=== PATIENT | male | born 1960 | race Caucasian/White ===

== ENCOUNTER 2020-04-11 10:33 | Emergency (ER) | payer MEDICARE, SELFPAY ==
[2020-04-11] VITALS (10 sets, daily range): BP systolic 93–124; BP diastolic 45–86; PULSE 75–138; RESP 16–135; TEMP 36.7; O2SAT 90–98; BMI 23.0
--- NOTE | 2020-04-11 10:36 | HMH.EDGENADL ---
ED Disposition Clinical Impression: Atrial fibrillation with RVR, Hyperglycemia GI bleed Qualifiers: GI bleed type/associated pathology: melena Qualified Code(s): K92.1 - Melena Hemorrhoids Qualifiers: Hemorrhoid type: other Qualified Code(s): K64.8 - Other hemorrhoids Leukocytosis Qualifiers: Leukocytosis type: other Qualified Code(s): D72.828 - Other elevated white blood cell count Disposition: Xfer Short-Term Hosp Condition on Discharge: Good Referrals: Provider,Referral, [Referring] - Time of Disposition: 14:26 - Critical Care Critical Care Time: No Attestation: On , the high probability of a clinically significant, sudden or life threatening deterioration of the following system(s) required my full and direct attention, intervention and personal management. The time I documented below is in addition to time spent performing reported procedures but includes the following listed in this critical care notation. Medical Decision Making - Medical Records Medical records reviewed: Yes: I reviewed the patient's medical records. MR Comment: 59-year-old male with a history of diabetes on 3 days a week dialysis presents the emergency department due to hemorrhoid pain, however further evaluation reveals that he has not been feeling well this week, family reports that he is unsteady on his feet, and he has missed his dialysis appointments all week as well. No focal neurological deficits. On arrival here he is in A. fib with RVR, he denies any history of this and family denies any history. Given this, he needs lab work-up and EKG. Will reassess. Brother arrives to the ER and states he has been passing blood clots in his stool. On reassessment, patient remained stable. We have treated his A. fib with RVR with metoprolol 5 mg twice. HR now 110-120. We have also treated his hyperglycemia with insulin, twice and rechecked glucose. He got 500 cc fluid. Given that the patient needs a GI work-up, has new onset A. fib with RVR, and is missed his dialysis appointments, he needs to be transferred for dialysis and further work-up. [facility]. Stable, transfer. - Parmjit Inquiry Pt receiving controlled substance: No Vital Signs: 04/11/20 10:34 04/11/20 12:04 04/11/20 12:40 Temperature 98.1 F Temperature Source Oral Pulse Rate [Right] 75 119 H 130 H Respiratory Rate 17 16 Blood Pressure [Right Arm] 124/56 L 108/58 L 121/76 Blood Pressure Mean [Right Arm] 78 74 91 Blood Pressure Source [Right Arm] Automatic Cuff Automatic Cuff Blood Pressure Position [Right Arm] Sitting Sitting 02 Sat by Pulse Oximetry 90 L 98 98 Oxygen Delivery Method Room Air Room Air 04/11/20 13:30 Temperature Temperature Source Pulse Rate [Right] 134 H Respiratory Rate 20 Blood Pressure [Right Arm] 101/58 L Blood Pressure Mean [Right Arm] 72 Blood Pressure Source [Right Arm] Automatic Cuff Blood Pressure Position [Right Arm] 02 Sat by Pulse Oximetry 96 Oxygen Delivery Method Room Air - Lab Data Lab Results 04/11/20 10:50: WBC 20.1 H*, RBC 3.27 L, Hgb 10.6 L, Hct 30.6 L, MCV 93.7, MCH 32.4 H, MCHC 34.6, RDW 14.0, Plt Count 224, MPV 11.5 H, Neut % (Auto) 93.6 H, Lymph % (Auto) 2.6 L, Mcdowell % (Auto) 3.6, Eos % (Auto) 0.1, Baso % (Auto) 0.1, Neut # (Auto) 18.8 H, Lymph # (Auto) 0.5 L, Mcdowell # (Auto) 0.7, Eos # (Auto) 0.0, Baso # (Auto) 0.0, Total Counted 100, Neutrophils % (Manual) 93 H, Lymphocytes % (Manual) 2 L, Monocytes % (Manual) 4, Eosinophils % (Manual) 1, Platelet Estimate Normal, RBC Morphology Normal 04/11/20 10:50: Sodium 126 L, Potassium 4.2, Chloride 87 L, Carbon Dioxide 17 L, Anion Gap 26.2 H, BUN 78 H, Creatinine 7.00 H, Estimated Creat Clear 12, Estimated GFR 8 L*, Est GFR ( Amer) 10 L*, Glucose 530 H*, Calcium 8.3 L, Total Bilirubin 0.7, AST 157 H, ALT 73, Alkaline Phosphatase 101, Troponin I 0.04 H, Total Protein 6.3, Albumin 3.2 L, Globulin 3.1, Albumin/Globulin Ratio 1.0 L 08
--- NOTE | 2020-04-11 10:39 | XR_ITS ---
PROCEDURE: XR CHEST PORTABLE CLINICAL HISTORY: weakness COMPARISON: CR CXR CHEST(2 VIEWS-NOT PORTABLE) from 10/01/2014 CR CXR CHEST(2 VIEWS-NOT PORTABLE) from 02/22/2016 CR CXR CHEST(2 VIEWS-NOT PORTABLE) from 01/03/2017 FINDINGS: The cardiomediastinal silhouette and pulmonary vascularity are within normal limits. The lungs are clear without infiltrates, suspicious nodules, or pleural effusions. No acute bony abnormalities. IMPRESSION: No acute findings. Dictated b Radames Moran MD 04/11/2020 12:46 Radames Moran MD in [place] 04/11/2020 12:46
--- NOTE | 2020-04-11 10:39 | CT_ITS ---
PROCEDURE: CT HEAD/BRAIN WO CON CLINICAL INDICATION: fall Posttraumatic pain, Head injury with headache/pain, contusion, abrasion or hematoma COMPARISON: CT HWWO CT HEAD-W/WO CONTRAST from 10/01/2014 TECHNIQUE: Axial images obtained. All CT scans at the facility use one or more dose reduction, viz: automated exposure control, ma/kV adjustment per patient size (including targeted exams where dose is matched to indication, i.e. head), or iterative reconstruction technique. FINDINGS: No midline shift, mass effect, intracranial hemorrhage, hydrocephalus, or extra-axial fluid collection is evident. There is generalized atrophy with hypoattenuation of the periventricular white matter consistent with microangiopathic changes. The calvarium has an unremarkable appearance. No mastoid effusion. There is mild mucosal thickening of the ethmoid sinuses. IMPRESSION: No acute intracranial finding. There is generalized atrophy with hypoattenuation of the periventricular white matter consistent with microangiopathic changes. Dictated b Radames Moran MD 04/11/2020 12:25 Radames Moran MD in [facility] 04/11/2020 12:25
--- NOTE | 2020-04-11 10:44 | ECG_ITS ---
APPROVED REPORT Exam: Resting ECG HR:142 bpm ECG Measurements Heart Rate 142 AXES QRSd 114 QRS -24 QT 332 T 131 QTc 510 <Conclusion> Atrial fibrillation with rapid ventricular response Incomplete right bundle branch block Minimal voltage criteria for LVH, may be normal variant ST & T wave abnormality, consider lateral ischemia or digitalis effect Abnormal ECG Electronically signed by : Enrique Willis, 04/12/2020 09:17:54
[2020-04-11 10:58] LABS: Basophils % 0.1 % (0.1-2.0); Eosinophils % 0.1 % (0.1-12.0); Hematocrit 30.6 % (42.0-52.0); Hemoglobin 10.6 g/dL (14.1-18.0); Lymphocytes # 0.5 K/mm3 (0.7-4.5); Lymphocytes % 2.6 % (10-50); Mean Corpuscular HGB Conc 34.6 g/dL (31.8-35.4); Mean Corpuscular Hemoglobin 32.4 pg (27.0-31.2); Mean Corpuscular Volume 93.7 fl (80-94); Mean Platelet Volume 11.5 fl (7.4-10.4); Monocytes # 0.7 K/mm3 (0.1-1.0); Monocytes % 3.6 % (1.7-9.3); Neutrophils # 18.8 K/mm3 (1.8-7.8); Neutrophils % 93.6 % (37.0-80.0); Platelet Count 224 K/mm3 (142-424); Red Blood Count 3.27 M/mm3 (4.60-6.20); White Blood Count 20.1 K/mm3 (4.8-10.8)
[2020-04-11 11:01] LABS: Chloride 87 mmol/L (98-107); Potassium 4.2 mmoL/L (3.5-5.1); Sodium 126 mmol/L (136-145)
[2020-04-11 11:03] LABS: Creatinine Clearance Estimated 12 mL/min (50-200); Estimated Glomerular Filt Rate 8 ml/min (>60); GFR (African American) 10 ML/MIN (>60)
[2020-04-11 11:04] LABS: Alanine Aminotransferase 73 U/L (12-78); Albumin Level 3.2 g/dl (3.5-5.0); Alkaline Phosphatase 101 U/L (38-126); Anion Gap 26.2 mEq/L (5-15); Aspartate Amino Transferase 157 U/L (17-59); Bilirubin,Total 0.7 mg/dl (0.2-1.3); Carbon Dioxide 17 mmol/L (22.0-30.0); Globulin 3.1 g/dL (1.3-3.2); Total Protein,Serum 6.3 g/dl (6.3-8.2)
[2020-04-11 11:05] LABS: Calcium 8.3 mg/dl (8.4-10.2); MANUAL DIFFERENTIAL MANUAL DIFFERENTIAL (MANUAL DIFF)
[2020-04-11 11:09] LABS: Blood Urea Nitrogen 78 mg/dl (9-20)
[2020-04-11 11:10] LABS: Eosinophils % 1 % (0-3); Glucose 530 mg/dl (74-100); Lymphocytes % 2 % (10-50); Monocytes % 4 % (2-9); Neutrophils % 93 % (42-76); Total Cells Counted 100
[2020-04-11 11:11] LABS: Platelet Estimate Normal; RBC Morphology Normal
[2020-04-11 11:16] LABS: Troponin I 0.04 ng/ml (0.00-0.034)
[2020-04-11 13:12] LABS: VBG Base Excess -11.2 mmol/L (-2.4-2.3); VBG HCO3 15.3 mmol/L (23-30); VBG PCO2 32.5 mmol/L (35-51); VBG PH 7.29 mmol/L (7.31-7.41); VBG PO2 194.8 mmol/L (28-40); VBG Total CO2 16.3 mmol/L (23-27)
--- NOTE | 2020-04-11 13:34 | PC.NURSE ---
speaking to Dr Wing from [facility]
--- NOTE | 2020-04-11 13:35 | PC.NURSE ---
Addendum entered by Clotilde Steiner RN 04/11/20 13:35: time correction called at 1330 Original Note: Called [facility] for possible transfer for place that has dialysis stated juan would call us back
--- NOTE | 2020-04-11 14:10 | PC.NURSE ---
speaking with hospitalist from [facility]
[2020-04-11 14:27] LABS: POC Glucose,Bedside 483 (70-110)
[2020-04-11 14:46] LABS: Troponin I 0.03 ng/ml (0.00-0.034)
[2020-04-11 15:29] LABS: POC Glucose,Bedside 389 (70-110)
== END 2020-04-11 16:19 | disposition short-term general hospital (02) ==
PROVIDERS: Emergency Provider Emergency Medicine; PCP Family Medicine
DX: I48.0 Paroxysmal atrial fibrillation (principal); K92.2 Gastrointestinal hemorrhage, unspecified; E11.65 Type 2 diabetes mellitus with hyperglycemia; Z79.4 Long term (current) use of insulin; K64.8 Other hemorrhoids; D72.828 Other elevated white blood cell count; Z79.899 Other long term (current) drug therapy
CPT/HCPCS: 70450; 71045; 80053; 82803; 82962; 84484; 85007; 85025; 86850; 93005; 96365; 96367; 96375; 96376; 99284